=== PATIENT | male | born 1990 | race Caucasian/White ===

== ENCOUNTER 2017-02-12 10:51 | Emergency (ER) | payer SELFPAY ==
[~2017-02-12] VITALS: Ht 167.6 cm; Wt 86.0 kg
[~2017-02-12 10:51] MED LIST: NOHOMEMEDS
[2017-02-12] MEDS ORDERED: NAPROSYN500 MG PO (12:52)
[2017-02-12 13:05] VITALS: BP 154/99
== END 2017-02-12 13:05 | disposition home or self-care (01) ==
LOC: EME 10:51
DX: S80.02XA Contusion of left knee, initial encounter (principal); M79.89 Other specified soft tissue disorders; V86.59XA Driver of other special all-terrain or other off-road motor vehicle injured in nontraffic accident, initial encounter
CPT/HCPCS: 73564; 99281; 99284

== ENCOUNTER 2018-02-16 23:16 | Emergency (ER) | payer OTHER ==
[~2018-02-16] VITALS: Ht 167.6 cm; Wt 95.1 kg
[~2018-02-16 23:16] MED LIST changes: +NAPROSYN500 MG PO
[2018-02-16] MEDS ORDERED: CIPRODEX OTIC7.5 ML LEFT EAR (23:59)
[2018-02-16] MEDS ORDERED: MOTRIN600 MG PO (23:59)
[2018-02-17 00:06] VITALS: BP 154/94
== END 2018-02-17 00:06 | disposition home or self-care (01) ==
LOC: EME 23:16 → RME 23:16
DX: H60.92 Unspecified otitis externa, left ear (principal); F17.200 Nicotine dependence, unspecified, uncomplicated
CPT/HCPCS: 99281; 99283